=== PATIENT | male | born 1955 | race Caucasian/White ===

== ENCOUNTER 2024-07-10 06:20 | Day surgery (SDC) | payer MEDICARE, OTHER ==
[2024-07-06 11:28] VITALS: BP 132/68
[~2024-07-10] VITALS: Ht 180.3 cm; Wt 87.3 kg
--- NOTE | ~2024-07-10 | OR ---
[facility] [address] [place], [place] [address] Draft DATE OF OPERATION: 07/10/2024 SURGEON: Catie Fuentes DO PREOPERATIVE DIAGNOSIS: Colon cancer screening. POSTOPERATIVE DIAGNOSES: Colon cancer screening with polyps at 18 and 28 cm. PROCEDURE PERFORMED: Jackman colonoscopy with polypectomy at 18 and 28 cm. ANESTHESIA: IV sedation. ESTIMATED BLOOD LOSS: Minimal. DRAINS: None. COMPLICATIONS: None. DESCRIPTION OF PROCEDURE: The patient was brought to the operating room, placed in the supine position. After induction of IV sedation, the patient was placed in the left lateral position. Digital rectal exam was completed with no evidence of masses or lesions noted in the rectum. An Olympus video colonoscope was then introduced into the anus directed to the length of rectosigmoid, descending colon, transverse colon, ascending colon and to the cecum under direct visualization. The scope was then withdrawn slowly. The cecum was unremarkable. Terminal ileum was unremarkable. No intrinsic or extrinsic masses were appreciated and the scope was brought back into the transverse colon. No intrinsic or extrinsic masses were appreciated and the scope was brought back to the splenic flexure and to the descending colon. Descending colon was essentially unmemorable. No intrinsic or extrinsic masses were noted. Scope was then brought to approximately 20 cm a pedunculated polyp was notified. utilized to trap. Polypectomy was carried out. The polyp trap was noted on the end of suction of the scope and was found to be in the specimen. Scope was then further withdrawn. Satisfactory hemostasis was maintained. PATIENT NAME: VENICE COLBERT OPERATIVE REPORT DATE OF : 55 REPORT #: [id number] PHYSICIAN: CATIE FUENTES DO PCP: TESHA FRIEDMAN REPORT IS CONFIDENTIAL AND NOT TO BE RELEASED WITHOUT AUTHORIZATION [facility] [address] [place], [place] [address] Draft Scope was then withdrawn into the lower sigmoid where another polyp was identified at 18 cm. Multiple biopsies were taken and they were passed off the table for pathologic review. No further intrinsic or extrinsic masses were appreciated in the sigmoid, rectosigmoid and the scope was removed in its entirety. The patient tolerated the procedure well and went to recovery room in satisfactory condition. 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
[~2024-07-10 06:20] MED LIST: AMBIEN10 MG PO; ASPIRIN81 MG PO; ATORVASTATIN CA40 MG PO; CEPHALEXIN500 MG PO; CYCLOBENZAPRINE5 MG PO; INDOMETHACIN25 MG PO; LACTATED RINGER'S 1,000 ML IV SCH; LOSARTAN POTAS100 MG PO; LOVASTATIN40 MG PO; METOPROLOL SUCC25 MG PO; NORVASC5 MG PO; RYBELSUS7 MG PO; VIAGRA100 MG PO; VITAMIN B-12100 MCG PO
[2024-07-10 06:51] VITALS: BP 133/69
[2024-07-10] MEDS ORDERED: LIDOCAINE HCL 1% 5 ML SDV INJ ONE (07:00)
[2024-07-10] MEDS ORDERED: IBLOOD GLUCOSE TEST STRIP 1 EA TEST VI PRN (07:00)
[2024-07-10] MEDS ORDERED: propofoL 200 MG/20 ML VIAL ONE ×2 (09:55→10:02)
[2024-07-10] MEDS ORDERED: LIDOCAINE HCL 2% 5 ML SDV ONE (09:55)
[2024-07-10 10:47] VITALS: BP 136/76
--- NOTE | 2024-07-10 12:04 | NUR ---
07/10/24 1204 Sheets,Latisha 1013 PT ARRIVED TO PACU ON 6L VIA MASK, RESP EVEN AND UNLABORED. DECREASED BP NOTED AND CBG 195, SIZE TESTER AWARE AND NO NEW ORDERS AT THIS TIME. 1029 PT WAKES TO TACTILE STIMULI AND PT REORIENTED TO PACU. PT DENIES CONCERNS. 1038 HOB INCREASED AND PT SIPPING JUICE PER REQUEST. 1045 VSS. 1105 PT DRESSED HIMSELF AND DC INSTRUCTION GIVEN WITH PAPERWORK PT DC VIA .
--- NOTE | 2024-07-14 11:30 | PATH ---
[facility] [address] [place], [place] [address] Signed SPECIMEN(S): D, Na COLON POLYP, 28 CM SPECIMEN(S): B COLON POLYP 18 CM SPECIMEN SOURCE: D, Na. COLON POLYP, 28 CM B. COLON POLYP 18 CM CLINICAL HISTORY: History of polyps/constipation FINAL PATHOLOGIC DIAGNOSIS: A. Colon polyp, 28 cm: - Tubular adenoma, negative for high-grade dysplasia. B. Colon polyp, 18 cm: - Hyperplastic polyp, negative for dysplasia. NA MICROSCOPIC EXAMINATION: Histologic sections of all submitted blocks are examined by light microscopy. These findings, together with the gross examination, support the pathologic diagnosis. GROSS DESCRIPTION: A. The specimen, labeled and designated "Hascall, colon polyp, 28 cm," is received in formalin and consists of four elaine soft tissue fragments, ranging from 0.2-0.4 cm. Entirely submitted in (A1). B. The specimen, labeled and designated "Hascall, colon polyp, 18 cm," is received in formalin and consists of two elaine soft tissue fragments, ranging from 0.3-0.9 cm. Entirely submitted in (B1). VB (under the direct supervision of a pathologist) The Gross Description was prepared using a voice recognition system. The report was reviewed for accuracy; however, sound-alike word errors, addition and/or deletions may occur. If there is any question about this report, please contact Client Services. ADDITIONAL NOTES: Immunohistochemical and/or in situ hybridization studies if performed in this case included appropriate positive controls that reacted as expected. This test was developed and its performance characteristics determined by [facility]. It has not been cleared or approved by the U.S. Food and Drug Administration. The FDA has determined that PATIENT NAME: VENICE COLBERT PATHOLOGY DATE OF : 55 REPORT #: [id number] PHYSICIAN: ЕЛЕНА NAVARRETE PCP: TESHA FRIEDMAN REPORT IS CONFIDENTIAL AND NOT TO BE RELEASED WITHOUT AUTHORIZATION [facility] [address] [facility] [place], [place] [address] Signed such clearance or approval is not necessary. This test is used for clinical purposes. It should not be regarded as investigational or for research. [facility] is certified under the Clinical Laboratory Improvement Amendments of 1988 (CLIA) as qualified to perform high complexity clinical laboratory testing. PERFORMING LABORATORY: Technical component was performed by [facility], [address] [place] [address] (CLIA# [id number]). Professional interpretation was performed by [facility], [address] [place] [address] (CLIA#: [id number]). Diagnostician: Eduar Eddy MD Pathologist Electronically Signed 07/14/2024 Copies: ~ PATIENT NAME: VENICE COLBERT PATHOLOGY DATE OF : 55 REPORT #: [id number] PHYSICIAN: ЕЛЕНА PATHOLOGY PCP: TESHA FRIEDMAN REPORT IS CONFIDENTIAL AND NOT TO BE RELEASED WITHOUT AUTHORIZATION
== END 2024-07-10 11:05 | disposition home or self-care (01) ==
LOC: DS 06:20
PROVIDERS: ATTEND Surgery
PROC: 0DBE8ZZ Excision of Large Intestine, Via Natural or Artificial Opening Endoscopic (ICD-10-PCS; 2024-07-10)
PROC: 0DBN8ZZ Excision of Sigmoid Colon, Via Natural or Artificial Opening Endoscopic (ICD-10-PCS; principal; 2024-07-10 08:25)
DX: Z12.11 Encounter for screening for malignant neoplasm of colon (principal); D12.5 Benign neoplasm of sigmoid colon; K63.5 Polyp of colon; I10 Essential (primary) hypertension; E11.9 Type 2 diabetes mellitus without complications; E78.5 Hyperlipidemia, unspecified; Z98.84 Bariatric surgery status; Z79.82 Long term (current) use of aspirin; Z79.899 Other long term (current) drug therapy; Z88.0 Allergy status to penicillin; Z88.8 Allergy status to other drugs, medicaments and biological substances
CPT/HCPCS: 00811; 88305; J2003; J2704; J7121

== ENCOUNTER 2024-10-17 21:37 | Emergency (ER) | payer OTHER, MEDICARE ==
[~2024-10-17] VITALS: Ht 180.3 cm; Wt 87.3 kg
[~2024-10-17 21:37] MED LIST changes: -LACTATED RINGER'S 1,000 ML IV SCH
[2024-10-17] MEDS ORDERED: SODIUM CHLORIDE 0.9% 1,000 ML IV ONE (22:15)
[2024-10-17 22:23] LABS: BASOPHILS 0.6 % (0.2-1.2); EOSINOPHILS 1.6 % (0.8-7.0); LYMPHOCYTES 11.9 % (21.8-53.1); MCH 30.3 PG (25.7-32.2); MCHC 33.9 g/dL (32.3-36.5); MCV 89.3 fL (79.0-92.2); MONOCYTES 7.7 % (5.3-12.2); NEUTROPHILS 77.0 % (34.0-67.9); RBC 4.49 M/uL (4.63-6.08)
[2024-10-17 22:39] LABS: ALT (SGPT) 35.0 U/L (14-59); AST (SGOT) 17.0 U/L (15-37); GLOMERULAR FILTRATION RATE,EST 48.0 mL/min (>60); PROTEIN, TOTAL 7.1 g/dL (6.4-8.2); UREA NITROGEN 27.0 mg/dL (7-18)
[2024-10-17] MEDS ORDERED: Insulin Regular, Human 100 UNIT/ML ML IV ONE (23:15)
[2024-10-17 23:34] LABS: BLOOD/HGB, URINE NEGATIVE (Negative); KETONE, URINE NEGATIVE (Negative); LEUK ESTERASE, URINE NEGATIVE (negative); NITRITE, URINE NEGATIVE (negative)
[2024-10-18 01:24] VITALS: BP 133/69
== END 2024-10-18 01:24 | disposition left against medical advice (07) ==
LOC: ED 21:37
PROVIDERS: Emergency Medicine
DX: E11.65 Type 2 diabetes mellitus with hyperglycemia (principal); M54.2 Cervicalgia; R07.9 Chest pain, unspecified; V89.2XXA Person injured in unspecified motor-vehicle accident, traffic, initial encounter; Z53.29 Procedure and treatment not carried out because of patient's decision for other reasons; I10 Essential (primary) hypertension; Z87.891 Personal history of nicotine dependence; Z88.0 Allergy status to penicillin; Z88.8 Allergy status to other drugs, medicaments and biological substances; Z79.82 Long term (current) use of aspirin; Z79.899 Other long term (current) drug therapy
CPT/HCPCS: 36415; 71046; 72125; 80053; 81003; 82010; 82800; 85025; 96374; 99284-25; J1815; J7030